=== PATIENT | female | born 1975 | race Caucasian/White ===

== ENCOUNTER 2017-01-03 11:15 | Inpatient (IN) | payer OTHER ==
[2017-01-03 14:37] VITALS: BMI 27.1
--- NOTE | 2017-01-03 16:34 | HP ---
Admission [facility] Chief Complaint: I WANT TO GO TO REHAB RECEIVED NURSE REPORTS THAT PPD VERIFICATION PENDING THAT THE PATIENT HAD PPD DONE AT [facility] Allergies/Adverse Reactions: Allergies Allergy/AdvReac Type Severity Reaction Status Date / Time iodine Allergy Severe Swelling Verified 01/03/17 15:35 shellfish derived Allergy Severe Swelling Verified 01/03/17 15:35 penicillin G Allergy Swelling Verified 01/03/17 15:35 Peroxide Allergy Severe Rash Uncoded 01/03/17 15:35 History of Present Illness: 41 YEARS OLD FEMALE WITH LONG HISTORY OF COCAINE NICOTINE DEPENDENCE HAS ASTHMA AND DEPRESSION IS ADMITTED TO REHAB Exam Limitations: No Limitations - Ebola screening Have you traveled outside of the country in the last 21 days: No Have you had contact with anyone from an Ebola affected area: No Have you been sick,other than usual withdrawal symptoms: No Do you have a fever: No - Review of Systems Constitutional: Weight Stable EENT: reports: No Symptoms Reported Respiratory: reports: No Symptoms reported Cardiac: reports: No Symptoms Reported GI: reports: No Symptoms Reported : reports: No Symptoms Reported Musculoskeletal: reports: No Symptoms Reported Integumentary: reports: No Symptoms Reported Neuro: reports: No Symptoms reported Endocrine: reports: No Symptoms Reported Hematology: reports: No Symptoms Reported Psychiatric: reports: Judgement Intact, Mood/Affect Appropiate, Orientated x3 Other Systems: Reviewed and Negative Patient History - Patient Medical History Hx Anemia: No Hx Asthma: Yes Hx Chronic Obstructive Pulmonary Disease (COPD): No Hx Cancer: No Hx Cardiac Disorders: No Hx Congestive Heart Failure: No Hx Hypertension: Yes (NO TREATMENT) Hx Hypercholesterolemia: No Hx Pacemaker: No HX Cerebrovascular Accident: No Hx Seizures: No Hx Dementia: No Hx Diabetes: No Hx Gastrointestinal Disorders: Yes (acid reflux) Hx Liver Disease: No Hx Genitourinary Disorders: No Hx Sexually Transmitted Disorders: No Hx Renal Disease (ESRD): No Hx Hepatitis C: No Hx Depression: Yes Hx Suicide Attempt: No Hx Bipolar Disorder: No Hx Schizophrenia: No - Patient Surgical History Past Surgical History: No Hx Neurologic Surgery: No Hx Cataract Extraction: No Hx Cardiac Surgery: No Hx Lung Surgery: No Hx Breast Surgery: No Hx Breast Biopsy: No Hx Abdominal Surgery: No Hx Appendectomy: No Hx Cholecystectomy: No Hx Genitourinary Surgery: No Hx Orthopedic Surgery: No - PPD History Previous Implant?: Yes Documented Results: Negative w/o proof Implanted On Prior [facility] Admission?: No PPD to be Administered?: Yes - Reproductive History Patient is a Female of Child Bearing Age (11 -55 yrs old): Yes Last Menstrual Period: 01/01/17 Patient : No - Smoking Cessation Smoking history: Current every day smoker Have you smoked in the past 12 months: Yes Aproximately how many cigarettes per day: 7 Cigars Per Day: 0 Hx Chewing Tobacco Use: No Initiated information on smoking cessation: Yes 'Breaking Loose' booklet given: 01/03/17 - Substance & Tx. History Hx Alcohol Use: No Hx Substance Use: Yes Substance Use Type: Cocaine Hx Substance Use Treatment: Yes (1998) - Substances Abused Cocaine Route: Smoking Frequency: Daily Amount used: $40 Age of first use: 23 Date of Last Use: 01/02/17 Family Disease History - Family Disease History Family Disease History: Diabetes: Grandparent, Other: Father (NO CONTACT), Mother (DO NOT KNOW) Admission Physical Exam S - Vital Signs Vital Signs: Vital Signs - 24 hr 01/03/17 14:35 Temperature 96 F L Pulse Rate 77 Respiratory 20 Rate Blood Pressure 111/63 - Physical General Appearance: Yes: Nourished, Appropriately Dressed HEENTM: Yes: Hearing grossly Normal, Normal ENT Inspection, Normocephalic, Normal Voice Respiratory: Yes: Chest Non-Tender, Lungs Clear, Normal Breath Sounds, No Respiratory Distress, No Accessory Muscle Use Neck: Yes: Supple, Trachea in good position Breast: Yes: Breasts Symetrical Cardiology: Yes: Regular Rhythm, Regular Rate, S1, S2 Abdominal: Yes: Normal Bowel Sounds, Non Tender, Soft Genitourinary: Yes: Within Normal Limits Back: Yes: Normal Inspection Musculoskeletal: Yes: full range of Motion, Gait Steady Extremities: Yes: Normal Range of Motion, Non-Tender, Other (VARICOSE VEINS LEFT LEG>RIGHT LEG) Neurological: Yes: Fully Oriented, Alert, Motor Strength 5/5, Normal Mood/Affect , Normal Response Integumentary: Yes: Warm Lymphatic: Yes: Within Normal Limits - Diagnostic (1) Cocaine dependence, uncomplicated Current Visit: Yes Status: Acute (2) Nicotine dependence Current Visit: Yes Status: Acute Qualifiers: Nicotine product type: cigarettes Substance use status: in withdrawal Qualified Code(s): F17.213 - Nicotine dependence, cigarettes, with withdrawal (3) Asthma Current Visit: Yes Status: Chronic Qualifiers: Asthma severity: mild Asthma persistence: intermittent Asthma complication type: with status asthmaticus Qualified Code(s): J45.22 - Mild intermittent asthma with status asthmaticus (4) GERD (gastroesophageal reflux disease) Current Visit: Yes Status: Chronic Qualifiers: Esophagitis presence: without esophagitis Qualified Code(s): K21.9 - Gastro -esophageal reflux disease without esophagitis (5) Varicose vein of leg Current Visit: Yes Status: Chronic Comment: RECOMMEND STOCKING (6) Methadone maintenance therapy patient Current Visit: Yes Status: Chronic Comment: 100 MG VERIFICATION PENDING Cleared for Admission S - Detox or Rehab [facility] Level of Care: Observation Bed Detox Regimen/Protocol: Not Applicable Claeared for Rehab Admission: Yes [facility] Breath Alcohol Content Breath Alcohol Content: 0 Urine Pregancy Test - Result Urine Test Results: Negative- NO Line Present Urine Drug Screen - Results Drug Screen Negative: No Urine Drug Screen Results: SONIA-Cocaine, MTD-Methadone Inpatient Rehab Admission - Initial Determination Are CD services needed?: Yes Free of communicable disease: Yes Not in need of hospitalization: Yes - Rehab Admission Criteria Previous failed treatment: Yes Poor recovery environment: Yes Comorbidities: Yes Lacks judgement: No Patient is meeting Inpatient Rehab admission criteria:: Yes
[2017-01-03] MEDS ORDERED: MAGNESIUM CITRATE 300 ML BOTTLE PO PRN (16:39)
[2017-01-03] MEDS ORDERED: MAGNESIUM HYDROX 2400MG/30ML ORAL SUSPENSION 30 ML CUP PO PRN (16:39)
[2017-01-03] MEDS ORDERED: NICOTINE POLACRILEX 2 MG GUM BC PRN (16:39)
[2017-01-03] MEDS ORDERED: LOPERAMIDE HCL 2 MG CAPSULE PO PRN (16:39)
[2017-01-03] MEDS ORDERED: MAG HYDROX/AL HYDROX/SIMETH 30 ML UNIT-DOSE CUP PO PRN (16:39)
[2017-01-03] MEDS ORDERED: guaiFENesin/D-METHORPHAN HB 10 ML UNIT-DOSE CUPS PO PRN (16:39)
[2017-01-03] MEDS ORDERED: ACETAMINOPHEN 325 MG TABLET (FP) PO PRN (16:39)
[2017-01-03] MEDS ORDERED: P-EPHED 60MG/TRIPROLIDI 2.5MG TABLET PO PRN (16:39)
[2017-01-03] MEDS ORDERED: MENTHOL/PHENOL 1 EACH UD MM PRN (16:39)
[2017-01-03] MEDS ORDERED: ALBUTEROL SO4 18 GM HFA INHALER IH PRN (16:40)
[2017-01-03] MEDS: RANITIDINE HCL 150 MG TABLET (FP) PO SCH ×2 (18:09→22:13)
[2017-01-03] MEDS: THIAMINE HCL 100 MG TABLET (FP) PO SCH (22:13)
[2017-01-03 22:58] LABS: URINE APPEARANCE CLOUDY; URINE BILIRUBIN NEGATIVE (NEGATIVE); URINE BLOOD NEGATIVE (NEGATIVE); URINE COLOR YELLOW; URINE GLUCOSE (UA) NEGATIVE (NEGATIVE); URINE KETONE NEGATIVE (NEGATIVE); URINE NITRITE NEGATIVE (NEGATIVE); URINE PROTEIN NEGATIVE (NEGATIVE); URINE UROBILINOGEN NEGATIVE mg/dL (0.2-1.0)
[2017-01-04] MEDS ORDERED: METHADONE HCL 10 MG TABLET PO SCH (06:00)
[2017-01-04] MEDS ORDERED: METHADONE HCL 40 MG DISPERSABLE TABLET ONE (06:59)
[2017-01-04] MEDS ORDERED: METHADONE HCL 10 MG TABLET ONE (06:59)
[2017-01-04] MEDS: METHADONE 80 MG, METHADONE 20 MG PO SCH (07:00)
[2017-01-04 07:22] VITALS: BP 108/72
[2017-01-04 09:57] LABS: MCH 32.1 pg (25.7-33.7); MEAN CELL VOLUME 97.1 fl (80-96); MEAN PLT VOLUME 7.7 fl (7.5-11.1); PLATELET COUNT 376 K/MM3 (134-434); RDW 15.1 % (11.6-15.6); WHITE BLOOD COUNT 8.3 K/mm3 (4.0-10.0)
[2017-01-04 10:09] LABS: ANION GAP 5 (8-16); BILIRUBIN,TOTAL 0.2 mg/dL (0.2-1.0); CALCIUM 8.5 mg/dL (8.5-10.1); CO2 30 mmol/L (21-32); GLUCOSE,RANDOM 84 mg/dL (74-106); SGOT/AST 11 U/L (15-37); SGPT/ALT 19 U/L (12-78); TOT PROT 6.7 g/dl (6.4-8.2)
[2017-01-04 10:10] LABS: ALBUMIN 3.3 g/dl (3.4-5.0); ALK PHOS 105 U/L (45-117); CREATININE 0.8 mg/dL (0.55-1.02)
[2017-01-04] MEDS: NICOTINE 14 MG/24 HOURS TOPICAL PATCH TD SCH (10:17)
[2017-01-04] MEDS: RANITIDINE HCL 150 MG TABLET (FP) PO SCH ×2 (10:17→21:30)
[2017-01-04] MEDS: PRENATAL VITAMINS W/ FOLIC ACID TABLET (FP) PO SCH (10:17)
--- NOTE | 2017-01-04 13:08 | EKG ---
Test Reason : Blood Pressure : / mmHG Vent. Rate : 075 BPM Atrial Rate : 075 BPM P-R Int : 178 ms QRS Dur : 102 ms QT Int : 420 ms P-R-T Axes : 062 076 075 degrees QTc Int : 469 ms NORMAL SINUS RHYTHM NORMAL ECG NO PREVIOUS ECGS AVAILABLE Confirmed by EDILSON DUNN MD ([id number]) on 01/04/2017 1:08:35 PM Referred By: Confirmed By:EDILSON DUNN MD
[2017-01-04 13:58] LABS: URINE LEUK ESTERASE Negative (NEGATIVE)
[2017-01-04] MEDS: THIAMINE HCL 100 MG TABLET (FP) PO SCH (21:29)
[2017-01-05] MEDS ORDERED: METHADONE HCL 10 MG TABLET ONE (05:49)
[2017-01-05] MEDS ORDERED: METHADONE HCL 40 MG DISPERSABLE TABLET ONE (05:49)
[2017-01-05] MEDS: METHADONE 80 MG, METHADONE 20 MG PO SCH (06:46)
[2017-01-05 07:17] VITALS: PULSE 71; TEMP 97.2
[2017-01-05] MEDS: RANITIDINE HCL 150 MG TABLET (FP) PO SCH (09:24)
[2017-01-05] MEDS: PRENATAL VITAMINS W/ FOLIC ACID TABLET (FP) PO SCH (09:24)
[2017-01-05] MEDS: NICOTINE 14 MG/24 HOURS TOPICAL PATCH TD SCH (09:32)
== END 2017-01-05 09:45 | disposition left against medical advice (07) | DRG 770 ==
LOC: YASAS 11:15 → Y3E 16:41
PROVIDERS: ADMIT Psychiatry & Neurology Psychiatry; ATTEND Psychiatry & Neurology Psychiatry
PROC: HZ42ZZZ Group Counseling for Substance Abuse Treatment, Cognitive-Behavioral (ICD-10-PCS; principal; 2017-01-03)
DX: F11.20 Opioid dependence, uncomplicated (principal); F14.20 Cocaine dependence, uncomplicated; F17.210 Nicotine dependence, cigarettes, uncomplicated; J45.909 Unspecified asthma, uncomplicated; K21.9 Gastro-esophageal reflux disease without esophagitis; I83.90 Asymptomatic varicose veins of unspecified lower extremity
CPT/HCPCS: 36415; 80053; 81003; 85027; 86593; 93005; 93010

== ENCOUNTER 2018-05-16 17:30 | Inpatient (IN) | payer SELFPAY ==
[2018-05-16 18:37] VITALS: BMI 36.9
--- NOTE | 2018-05-16 19:09 | HP ---
CIWA Score Nausea/Vomitin Muscle Tremors: 2 Anxiety: 2 Agitation: 0-Normal Activity Paroxysmal Sweats: 2 Orientation: 0-Oriented Tacttile Disturbances: 0-None Auditory Disturbances: 0-None Visual Disturbances: 2-Mild Sensitivity Headache: 3-Moderate (6/10) CIWA-Ar Total Score: 13 - Admission Criteria [facility] Guidelines: Admission for Medically Managed Detox: Requires at least one of the followin. CIWA greater than 12 2. Seizures within the past 24 hours 3. Delirium tremens within the past 24 hours 4. Hallucinations within the past 24 hours 5. Acute intervention needed for co occurring medical disorder 6. Acute intervention needed for co occurring psychiatric disorder 7. Severe withdrawal that cannot be handled at a lower level of care (continued vomiting, continued diarrhea, abnormal vital signs) requiring intravenous medication and/or fluids 8. Patient presents the following: CIWA greater than 12 Admission Criteria Met: Admission criteria met Admission ROS [facility] Chief Complaint: alcohol detox Allergies/Adverse Reactions: Allergies Allergy/AdvReac Type Severity Reaction Status Date / Time iodine Allergy Severe Swelling Verified 05/16/18 18:26 shellfish derived Allergy Severe Swelling Verified 05/16/18 18:26 penicillin G Allergy Swelling Verified 05/16/18 18:26 Peroxide Allergy Severe Rash Uncoded 05/16/18 18:26 History of Present Illness: 42 yo female with hx of alcohol, percocet and crack / cocaine dependence is here seeking alcohol detox. [facility] on 70 mg, last dose today, dose pending verification PMHX: asthma, RA, HTN, GERD Psych; depression, bipolar and anxiety, non-adherent with treatment Denies hx of seizures Reports remote hx of alcohol blackouts. Exam Limitations: No Limitations - Ebola screening Have you traveled outside of the country in the last 21 days: No (N) Have you had contact with anyone from an Ebola affected area: No Do you have a fever: No - Review of Systems Constitutional: Chills, Diaphoresis, Other (weight gain "a lot") EENT: reports: Nose Congestion (runny nose) Respiratory: reports: No Symptoms reported Cardiac: reports: No Symptoms Reported GI: reports: Nausea, Poor Fluid Intake, Indigestion : reports: No Symptoms Reported Musculoskeletal: reports: Joint Pain Integumentary: reports: No Symptoms Reported Neuro: reports: Headache, Tingling (fingertips) Endocrine: reports: See HPI, Increased Thirst Hematology: reports: No Symptoms Reported Psychiatric: reports: Orientated x3, Anxious Other Systems: Reviewed and Negative Patient History - Patient Medical History Hx Anemia: No Hx Asthma: Yes Hx Chronic Obstructive Pulmonary Disease (COPD): No Hx Cancer: No Hx Cardiac Disorders: No Hx Congestive Heart Failure: No Hx Hypertension: Yes (NO TREATMENT) Hx Hypercholesterolemia: No Hx Pacemaker: No HX Cerebrovascular Accident: No Hx Seizures: No Hx Dementia: No Hx Diabetes: No Hx Gastrointestinal Disorders: Yes (acid reflux) Hx Liver Disease: No Hx Genitourinary Disorders: No Hx Sexually Transmitted Disorders: No Hx Renal Disease (ESRD): No Hx Hepatitis C: No Hx Depression: Yes Hx Suicide Attempt: No Hx Bipolar Disorder: Yes Hx Schizophrenia: No - Patient Surgical History Past Surgical History: No Hx Neurologic Surgery: No Hx Cataract Extraction: No Hx Cardiac Surgery: No Hx Lung Surgery: No Hx Breast Surgery: No Hx Breast Biopsy: No Hx Abdominal Surgery: No Hx Appendectomy: No Hx Cholecystectomy: No Hx Genitourinary Surgery: No Hx Section: No Hx Orthopedic Surgery: No Anesthesia Reaction: No - PPD History Previous Implant?: No Documented Results: Negative w/o proof PPD to be Administered?: Yes - Reproductive History Patient is a Female of Child Bearing Age (11 -55 yrs old): Yes Last Menstrual Period: 05/12/18 - Smoking Cessation Smoking history: Current every day smoker Have you smoked in the past 12 months: Yes Aproximately how many cigarettes per day: 4 Cigars Per Day: 0 Hx Chewing Tobacco Use: No Initiated information on smoking cessation: Yes 'Breaking Loose' booklet given: 05/16/18 - Substance & Tx. History Hx Alcohol Use: Yes Hx Substance Use: Yes Substance Use Type: Alcohol, Cocaine, Heroin Hx Substance Use Treatment: Yes (Patient does not recall ) - Substances abused Other Other (specify): Percocet Substance route: Oral Frequency: Daily Amount used: 5 pills Age of first use: 38 Date of last use: 05/16/18 Cocaine Substance route: Smoking Frequency: Daily Amount used: 1 and a half gram Age of first use: 23 Date of last use: 05/15/18 Crack Substance route: Smoking Frequency: Daily Amount used: 1 and a half gram Age of first use: 23 Date of last use: 05/15/18 Alcohol Substance route: Oral Frequency: Daily Amount used: 3 - 4 x 16 oz Age of first use: 6 Date of last use: 05/16/18 Family Disease History - Family Disease History Family Disease History: Diabetes: Grandparent, Other: Father (NO CONTACT), Mother (DO NOT KNOW) Admission Physical Exam [facility] - Vital Signs Vital Signs: Vital Signs - 24 hr 05/16/18 18:30 Temperature 98.0 F Pulse Rate 75 Respiratory 20 Rate Blood Pressure 121/75 - Physical General Appearance: Yes: Disheveled (unkempt), Mild Distress, Obese, Anxious HEENTM: Yes: Hearing grossly Normal, Normal ENT Inspection, Normocephalic, Normal Voice, JENNIFER, Pharynx Normal, Tm's normal, Nasal Congestion, Rhinorrhea Respiratory: Yes: Chest Non-Tender, Lungs Clear, Normal Breath Sounds, No Respiratory Distress, No Accessory Muscle Use Neck: Yes: Within Normal Limits Breast: Yes: Breast Exam Deferred Cardiology: Yes: Regular Rhythm, Regular Rate Abdominal: Yes: Normal Bowel Sounds, Non Tender, Soft, Protuberent Genitourinary: Yes: Within Normal Limits Back: Yes: Normal Inspection Musculoskeletal: Yes: full range of Motion, Gait Steady, Pelvis Stable, Back pain Extremities: Yes: Normal Capillary Refill, Normal Inspection, Normal Range of Motion, Non-Tender Neurological: Yes: deck scaler II-XII NML intact, Fully Oriented, Alert, Motor Strength 5/5, Depressed Affect Integumentary: Yes: Normal Color, Warm, Diaphoresis Lymphatic: Yes: Within Normal Limits - Diagnostic (1) Hypertension Current Visit: Yes Status: Chronic Qualifiers: Hypertension type: essential hypertension Qualified Code(s): I10 - Essential (primary) hypertension Comment: no meds (2) Alcohol dependence with uncomplicated withdrawal Current Visit: Yes Status: Acute (3) Cocaine dependence, uncomplicated Current Visit: Yes Status: Acute (4) Nicotine dependence Current Visit: Yes Status: Acute Qualifiers: Nicotine product type: cigarettes Substance use status: in withdrawal Qualified Code(s): F17.213 - Nicotine dependence, cigarettes, with withdrawal (5) Asthma Current Visit: Yes Status: Chronic Qualifiers: Asthma severity: mild Asthma persistence: intermittent Asthma complication type: with status asthmaticus Qualified Code(s): J45.22 - Mild intermittent asthma with status asthmaticus (6) GERD (gastroesophageal reflux disease) Current Visit: Yes Status: Chronic Qualifiers: Esophagitis presence: without esophagitis Qualified Code(s): K21.9 - Gastro -esophageal reflux disease without esophagitis (7) Methadone maintenance therapy patient Current Visit: Yes Status: Chronic Comment: 70 MG VERIFICATION PENDING (8) Varicose vein of leg Current Visit: Yes Status: Chronic Qualifiers: Laterality: bilateral Cleared for Admission [facility] - Detox or Rehab S Level of Care: Medically Managed Detox Regimen/Protocol: Librium Breathalyzer - Breathalyzer Breathalyzer: 0 Urine Drug Screen - Test Device Lot number: [id number] Expiration date: 05/05/19 - Control Is test valid?: Yes - Results Drug screen NEGATIVE: No Urine drug screen results: SONIA-Cocaine, OXY-Oxycodone, MTD-Methadone Inpatient Rehab Admission - Rehab Decision to Admit Inpatient rehab admission?: No
[2018-05-16] MEDS ORDERED: MAG HYDROX/AL HYDROX/SIMETH 30 ML UNIT-DOSE CUP PO PRN (19:13)
[2018-05-16] MEDS ORDERED: IBUPROFEN 400 MG TABLET (FP) PO PRN (19:13)
[2018-05-16] MEDS ORDERED: chlordiazePOXIDE HCL 10 MG CAPSULE PO PRN (19:13)
[2018-05-16] MEDS ORDERED: MELATONIN 5 MG TABLETS PO PRN (19:13)
[2018-05-16] MEDS ORDERED: MENTHOL/PHENOL 1 EACH UD MM PRN (19:13)
[2018-05-16] MEDS ORDERED: MAGNESIUM CITRATE 300 ML BOTTLE PO PRN (19:13)
[2018-05-16] MEDS ORDERED: BISMUTH SUBSALICYLATE 524 MG/30 ML UD PO PRN (19:13)
[2018-05-16] MEDS ORDERED: hydrOXYzine PAMOATE 25 MG CAPSULE (FP) PO PRN (19:13)
[2018-05-16] MEDS ORDERED: MAGNESIUM HYDROX 2400MG/30ML ORAL SUSPENSION 30 ML CUP PO PRN (19:13)
[2018-05-16] MEDS ORDERED: METHOCARBAMOL 500 MG TABLET PO PRN (19:13)
[2018-05-16] MEDS ORDERED: NICOTINE POLACRILEX 2 MG GUM BUC PRN (19:13)
[2018-05-16] MEDS ORDERED: ACETAMINOPHEN 325 MG TABLET (FP) PO PRN ×2 (19:13)
[2018-05-16] MEDS: chlordiazePOXIDE HCL 25 MG CAPSULE PO SCH (21:29)
[2018-05-16] MEDS ORDERED: THIAMINE HCL 100 MG TABLET (FP) PO SCH (22:00)
[2018-05-16 23:29] LABS: URINE APPEARANCE Clear; URINE BILIRUBIN Negative (NEGATIVE); URINE COLOR Yellow; URINE GLUCOSE (UA) Negative (NEGATIVE); URINE KETONE Negative (NEGATIVE); URINE LEUK ESTERASE Negative (NEGATIVE); URINE NITRITE Negative (NEGATIVE); URINE PROTEIN Negative (NEGATIVE); URINE UROBILINOGEN 0.2 mg/dL (0.2-1.0)
[2018-05-17] MEDS: chlordiazePOXIDE HCL 25 MG CAPSULE PO SCH (05:28)
[2018-05-17 06:14] VITALS: BP 113/72; PULSE 68; TEMP 96.8
[2018-05-17 09:52] LABS: HEMATOCRIT 38.6 % (32.4-45.2); MCH 33.5 pg (25.7-33.7); MCHC 33.8 g/dl (32.0-36.0); MEAN CELL VOLUME 99.2 fl (80-96); MEAN PLT VOLUME 7.8 fl (7.5-11.1); PLATELET COUNT 301 K/MM3 (134-434); RBC 3.89 M/mm3 (3.60-5.2); RDW 14.6 % (11.6-15.6); WHITE BLOOD COUNT 6.4 K/mm3 (4.0-10.0)
[2018-05-17] MEDS ORDERED: NICOTINE 14 MG/24 HOURS TOPICAL PATCH TD SCH (10:00)
[2018-05-17] MEDS ORDERED: PRENATAL VITAMINS W/ FOLIC ACID TABLET (FP) PO SCH (10:00)
[2018-05-17 10:06] LABS: ALBUMIN 3.4 g/dl (3.4-5.0); ALK PHOS 73 U/L (45-117); ANION GAP 4 MMOL/L (8-16); BILIRUBIN,TOTAL 0.6 mg/dL (0.2-1); BLOOD UREA NITROGEN 15 mg/dL (7-18); CALCIUM 8.3 mg/dL (8.5-10.1); CHLORIDE 104 mmol/L (98-107); CO2 31 mmol/L (21-32); CREATININE 0.7 mg/dL (0.55-1.3); GLUCOSE,RANDOM 102 mg/dL (74-106); POTASSIUM 4.5 mmol/L (3.5-5.1); SGOT/AST 15 U/L (15-37); SGPT/ALT 18 U/L (13-61); SODIUM 138 mmol/L (136-145); TOT PROT 6.4 g/dl (6.4-8.2)
--- NOTE | 2018-05-17 10:26 | EKG ---
Test Reason : Blood Pressure : / mmHG Vent. Rate : 073 BPM Atrial Rate : 073 BPM P-R Int : 174 ms QRS Dur : 092 ms QT Int : 410 ms P-R-T Axes : 047 075 064 degrees QTc Int : 451 ms NORMAL SINUS RHYTHM NORMAL ECG WHEN COMPARED WITH ECG OF 03-JAN-2017 21:20, NO SIGNIFICANT CHANGE WAS FOUND Confirmed by IBIS LEROY MD ([id number]) on 05/17/2018 10:26:48 AM Referred By: Confirmed By:IBIS LEROY MD
--- NOTE | 2018-05-17 15:58 | PN ---
S CIWA - CIWA Score Nausea/Vomitin-No Nausea/No Vomiting Muscle Tremors: 3 Anxiety: 4-Mod. Anxious/Guarded Agitation: 3 Paroxysmal Sweats: No Perspiration Orientation: 0-Oriented Tacttile Disturbances: 2-Mild Itch/Numbness/Burn Auditory Disturbances: 0-None Visual Disturbances: 2-Mild Sensitivity Headache: 0-None Present CIWA-Ar Total Score: 14 [facility] Progress Note (SOAP) Subjective: Anxious, Restless, Tremors, Interrupted Sleep. Objective: PATIENT A & O X 3, OBSERVED AMBULATING ON UNIT. IN NO ACUTE DISTRESS. 05/17/18 15:59 Vital Signs Temperature 96.8 F L 05/17/18 06:14 Pulse Rate 68 05/17/18 06:14 Respiratory Rate 18 05/17/18 06:14 Blood Pressure 113/72 05/17/18 06:14 O2 Sat by Pulse Oximetry (%) Laboratory Tests 05/16/18 05/16/18 05/17/18 22:03 22:59 07:00 WBC 6.4 RBC 3.89 Hgb 13.0 Hct 38.6 MCV 99.2 H MCH 33.5 MCHC 33.8 RDW 14.6 Plt Count 301 MPV 7.8 Sodium Potassium Chloride Carbon Dioxide Anion Gap BUN Creatinine Creat Clearance w eGFR Random Glucose Calcium Total Bilirubin AST ALT Alkaline Phosphatase Total Protein Albumin Urine Color Yellow Urine Appearance Clear Urine pH 6.0 Ur Specific [place] 1.025 Urine Protein Negative Urine Glucose (UA) Negative Urine Ketones Negative Urine Blood Negative Urine Nitrite Negative Urine Bilirubin Negative Urine Urobilinogen 0.2 Ur Leukocyte Esterase Negative POC Urine HCG, Qual Negative RPR Titer 05/17/18 05/17/18 07:00 07:00 WBC RBC Hgb Hct MCV MCH MCHC RDW Plt Count MPV Sodium 138 Potassium 4.5 Chloride 104 Carbon Dioxide 31 Anion Gap 4 L BUN 15 Creatinine 0.7 Creat Clearance w eGFR 92.68 Random Glucose 102 Calcium 8.3 L Total Bilirubin 0.6 AST 15 ALT 18 Alkaline Phosphatase 73 Total Protein 6.4 Albumin 3.4 Urine Color Urine Appearance Urine pH Ur Specific [place] Urine Protein Urine Glucose (UA) Urine Ketones Urine Blood Urine Nitrite Urine Bilirubin Urine Urobilinogen Ur Leukocyte Esterase POC Urine HCG, Qual RPR Titer Nonreactive LABS NOTED. Assessment: 05/17/18 16:00 WITHDRAWAL SYMPTOMS. Plan: CONTINUE DETOX.
--- NOTE | 2018-05-17 16:10 | DS ---
[facility] Detox Discharge Summary Admission Date: 05/16/18 Discharge Date: 05/17/18 - History Present History: Alcohol Dependence, Cocaine Dependence, Opioid Dependence, MMTP Additional Comments: DESPITE EFFORTS BY FOOD COUNSELOR AND BY NURSING STAFF TO ADDRESS PATIENT'S MEDICAL NEEDS / CONCERNS, PATIENT DOES NOT WISH TO REMAIN TO COMPLETE DETOX REGIMEN. RISKS OF LEAVING DETOX UNIT AGAINST MEDICAL ADVICE AND PRIOR TO COMPLETION OF DETOX REGIMEN EXPLAINED TO PATIENT. PATIENT ADVISED TO GO IMMEDIATELY TO NEAREST ER SHOULD ANY INTOLERABLE WITHDRAWAL / DETOX SYMPTOMS DEVELOP AT ANY TIME. PATIENT VERBALIZED UNDERSTANDING OF ALL INFORMATION / RECOMMENDATIONS PRESENTED TO HIM PRIOR TO DEPARTURE FROM DETOX UNIT. PATIENT LEFT DETOX UNIT IN STABLE MEDICAL CONDITION. Pertinent Past History: HTN, Nicotine Dependence, G.E.R.D., History of Varicose Vein of Leg, M.M.T.P., Asthma, Depression, Bipolar Disorder. - Physical Exam Results Vital Signs: Vital Signs Temperature 96.8 F L 05/17/18 06:14 Pulse Rate 68 05/17/18 06:14 Respiratory Rate 18 05/17/18 06:14 Blood Pressure 113/72 05/17/18 06:14 O2 Sat by Pulse Oximetry (%) Pertinent Admission Physical Exam Findings: WITHDRAWAL SYMPTOMS. Laboratory Tests 05/16/18 05/16/18 05/17/18 22:03 22:59 07:00 WBC 6.4 RBC 3.89 Hgb 13.0 Hct 38.6 MCV 99.2 H MCH 33.5 MCHC 33.8 RDW 14.6 Plt Count 301 MPV 7.8 Sodium Potassium Chloride Carbon Dioxide Anion Gap BUN Creatinine Creat Clearance w eGFR Random Glucose Calcium Total Bilirubin AST ALT Alkaline Phosphatase Total Protein Albumin Urine Color Yellow Urine Appearance Clear Urine pH 6.0 Ur Specific [place] 1.025 Urine Protein Negative Urine Glucose (UA) Negative Urine Ketones Negative Urine Blood Negative Urine Nitrite Negative Urine Bilirubin Negative Urine Urobilinogen 0.2 Ur Leukocyte Esterase Negative POC Urine HCG, Qual Negative RPR Titer 05/17/18 05/17/18 07:00 07:00 WBC RBC Hgb Hct MCV MCH MCHC RDW Plt Count MPV Sodium 138 Potassium 4.5 Chloride 104 Carbon Dioxide 31 Anion Gap 4 L BUN 15 Creatinine 0.7 Creat Clearance w eGFR 92.68 Random Glucose 102 Calcium 8.3 L Total Bilirubin 0.6 AST 15 ALT 18 Alkaline Phosphatase 73 Total Protein 6.4 Albumin 3.4 Urine Color Urine Appearance Urine pH Ur Specific [place] Urine Protein Urine Glucose (UA) Urine Ketones Urine Blood Urine Nitrite Urine Bilirubin Urine Urobilinogen Ur Leukocyte Esterase POC Urine HCG, Qual RPR Titer Nonreactive LABS NOTED. - Treatment Hospital Course: Detox Protocol Followed, Detoxed Safely - Medication Discharge Medications: Ambulatory Orders Albuterol Sulfate Inhaler - [Ventolin Hfa Inhaler -] 2 inh PO Q4H PRN 01/03/17 - Diagnosis (1) Alcohol dependence with uncomplicated withdrawal Status: Acute (2) Cocaine dependence, uncomplicated Status: Acute (3) Nicotine dependence Status: Acute Qualifiers: Nicotine product type: cigarettes Substance use status: in withdrawal Qualified Code(s): F17.213 - Nicotine dependence, cigarettes, with withdrawal (4) Asthma Status: Chronic Qualifiers: Asthma severity: mild Asthma persistence: intermittent Asthma complication type: with status asthmaticus Qualified Code(s): J45.22 - Mild intermittent asthma with status asthmaticus (5) GERD (gastroesophageal reflux disease) Status: Chronic Qualifiers: Esophagitis presence: without esophagitis Qualified Code(s): K21.9 - Gastro -esophageal reflux disease without esophagitis (6) Hypertension Status: Chronic Qualifiers: Hypertension type: essential hypertension Qualified Code(s): I10 - Essential (primary) hypertension (7) Methadone maintenance therapy patient Status: Chronic (8) Varicose vein of leg Status: Chronic Qualifiers: Varicose vein complication: unspecified Laterality: bilateral Qualified Code(s): I83.93 - Asymptomatic varicose veins of bilateral lower extremities - AMA Did Patient Leave Against Medical Advice: Yes (PATIENT DID NOT WISH TO REMAIN TO COMPLETE DETOX REGIMEN.)
[2018-05-17] MEDS ORDERED: chlordiazePOXIDE 5 MG CAPSULE PO SCH (21:00)
[2018-05-18] MEDS ORDERED: chlordiazePOXIDE HCL 10 MG CAPSULE PO SCH (21:00)
[2018-05-18] MEDS ORDERED: chlordiazePOXIDE HCL 10 MG CAPSULE PO PRN (21:00)
== END 2018-05-17 08:47 | disposition left against medical advice (07) | DRG 770 ==
LOC: YASAS 17:30 → Y3N 20:20
PROVIDERS: ADMIT Surgery; ATTEND Surgery
PROC: HZ2ZZZZ Detoxification Services for Substance Abuse Treatment (ICD-10-PCS; principal; 2018-05-16)
DX: F10.230 Alcohol dependence with withdrawal, uncomplicated (principal); F11.20 Opioid dependence, uncomplicated; F14.20 Cocaine dependence, uncomplicated; F17.213 Nicotine dependence, cigarettes, with withdrawal; I10 Essential (primary) hypertension; J45.22 Mild intermittent asthma with status asthmaticus; K21.9 Gastro-esophageal reflux disease without esophagitis; I83.93 Asymptomatic varicose veins of bilateral lower extremities; M06.9 Rheumatoid arthritis, unspecified; E66.9 Obesity, unspecified; Z68.37 Body mass index [BMI] 37.0-37.9, adult; Z88.0 Allergy status to penicillin; Z91.013 Allergy to seafood; Z91.048 Other nonmedicinal substance allergy status
CPT/HCPCS: 36415; 80053; 81003; 81025; 85027; 86593; 93005; 93010

== ENCOUNTER 2018-06-10 13:06 | Inpatient (IN) | payer OTHER ==
[2018-06-10 14:11] VITALS: BMI 35.3
--- NOTE | 2018-06-10 15:17 | HP ---
CIWA Score Nausea/Vomitin-No Nausea/No Vomiting Muscle Tremors: None Anxiety: 0-No Anxiety, at Ease Agitation: 0-Normal Activity Paroxysmal Sweats: No Perspiration Orientation: 0-Oriented Tacttile Disturbances: 0-None Auditory Disturbances: 0-None Visual Disturbances: 0-None Headache: 2-Mild CIWA-Ar Total Score: 2 - Admission Criteria OASAS Guidelines: Admission for Medically Managed Detox: Requires at least one of the followin. CIWA greater than 12 2. Seizures within the past 24 hours 3. Delirium tremens within the past 24 hours 4. Hallucinations within the past 24 hours 5. Acute intervention needed for co occurring medical disorder 6. Acute intervention needed for co occurring psychiatric disorder 7. Severe withdrawal that cannot be handled at a lower level of care (continued vomiting, continued diarrhea, abnormal vital signs) requiring intravenous medication and/or fluids 8. Admission [facility] Chief Complaint: seeking rehab admission for cocaine use 42 yo with h/o asthma, diabetes, RA, varicose veins, PCP- [facility]. alcohol- no drink since yesterday, 2-3 of 24 oz/day of beer, no h/o seizures, no withdrawal Sx. cocaine- 1 gram/day DUR: no recent meds Utox: MTD, opiates, satnam MTD: 70mg/day [facility] Allergies/Adverse Reactions: Allergies Allergy/AdvReac Type Severity Reaction Status Date / Time iodine Allergy Severe Swelling Verified 06/10/18 14:03 shellfish derived Allergy Severe Swelling Verified 06/10/18 14:03 penicillin G Allergy Swelling Verified 06/10/18 14:03 Peroxide Allergy Severe Rash Uncoded 06/10/18 14:03 - Ebola screening Have you traveled outside of the country in the last 21 days: No Have you had contact with anyone from an Ebola affected area: No Patient History - Patient Medical History Hx Anemia: No Hx Asthma: Yes Hx Chronic Obstructive Pulmonary Disease (COPD): No Hx Cancer: No Hx Cardiac Disorders: No Hx Congestive Heart Failure: No Hx Hypertension: Yes (NO TREATMENT) Hx Hypercholesterolemia: No Hx Pacemaker: No HX Cerebrovascular Accident: No Hx Seizures: No Hx Dementia: No Hx Diabetes: No Hx Gastrointestinal Disorders: Yes (acid reflux) Hx Liver Disease: No Hx Genitourinary Disorders: No Hx Sexually Transmitted Disorders: No Hx Renal Disease (ESRD): No Hx Hepatitis C: No Hx Depression: Yes Hx Suicide Attempt: No Hx Bipolar Disorder: Yes Hx Schizophrenia: No Other Medical History: diabetes? - Patient Surgical History Past Surgical History: No Hx Neurologic Surgery: No Hx Cataract Extraction: No Hx Cardiac Surgery: No Hx Lung Surgery: No Hx Breast Surgery: No Hx Breast Biopsy: No Hx Abdominal Surgery: No Hx Appendectomy: No Hx Cholecystectomy: No Hx Genitourinary Surgery: No Hx Section: No Hx Orthopedic Surgery: No Anesthesia Reaction: No - PPD History Date: 05/18/18 - Reproductive History Last Menstrual Period: 05/12/18 - Smoking Cessation Smoking history: Current every day smoker Have you smoked in the past 12 months: Yes Aproximately how many cigarettes per day: 4 Cigars Per Day: 0 Hx Chewing Tobacco Use: No Initiated information on smoking cessation: Yes 'Breaking Loose' booklet given: 06/10/18 - Substance & Tx. History Hx Alcohol Use: Yes Hx Substance Use: Yes Substance Use Type: Cocaine, Prescribed Hx Substance Use Treatment: Yes - Substances abused Other Other (specify): Percocet Substance route: Oral Frequency: Daily Amount used: 5 pills Age of first use: 38 Date of last use: 05/16/18 Cocaine Substance route: Smoking Frequency: Daily Amount used: 1 and a half gram Age of first use: 23 Date of last use: 06/09/18 Crack Substance route: Smoking Frequency: Daily Amount used: 1 and a half gram Age of first use: 23 Date of last use: 06/09/18 Alcohol Substance route: Oral Frequency: Daily Amount used: 3 - 4 x 16 oz Age of first use: 6 Date of last use: 06/09/18 Family Disease History - Family Disease History Family Disease History: Diabetes: Grandparent, Other: Father (NO CONTACT), Mother (DO NOT KNOW), Brother (blind) Admission Physical Exam [facility] - Vital Signs Vital Signs: Vital Signs - 24 hr 06/10/18 06/10/18 14:05 15:01 Temperature 97.1 F L 97.1 F L Pulse Rate 72 72 Respiratory 20 20 Rate Blood Pressure 116/74 116/74 - Physical General Appearance: Yes: Within Normal Limits HEENTM: Yes: Within Normal Limits Respiratory: Yes: Within Normal Limits Neck: Yes: Within Normal Limits Cardiology: Yes: Within Normal Limits Abdominal: Yes: Within Normal Limits Back: Yes: Within Normal Limits, Normal Inspection Musculoskeletal: Yes: Within Normal Limits, Other Extremities: Yes: Within Normal Limits, Other (dilated superficial veins L>R) Neurological: Yes: Within Normal Limits, surg tech II-XII NML intact, Fully Oriented, Alert, Motor Strength 5/5 Integumentary: Yes: Within Normal Limits Lymphatic: Yes: Within Normal Limits - Diagnostic (1) Alcohol dependence with uncomplicated withdrawal Current Visit: No Status: Acute (2) Cocaine dependence, uncomplicated Current Visit: No Status: Acute (3) Nicotine dependence Current Visit: No Status: Acute Qualifiers: Nicotine product type: cigarettes Substance use status: in withdrawal Qualified Code(s): F17.213 - Nicotine dependence, cigarettes, with withdrawal (4) Asthma Current Visit: No Status: Chronic Qualifiers: Asthma severity: mild Asthma persistence: intermittent Asthma complication type: with status asthmaticus Qualified Code(s): J45.22 - Mild intermittent asthma with status asthmaticus (5) GERD (gastroesophageal reflux disease) Current Visit: No Status: Chronic Qualifiers: Esophagitis presence: without esophagitis Qualified Code(s): K21.9 - Gastro -esophageal reflux disease without esophagitis (6) Hypertension Current Visit: No Status: Chronic Qualifiers: Hypertension type: essential hypertension Qualified Code(s): I10 - Essential (primary) hypertension Comment: no meds (7) Methadone maintenance therapy patient Current Visit: No Status: Chronic Comment: 70 MG VERIFICATION PENDING (8) Varicose vein of leg Current Visit: No Status: Chronic Qualifiers: Varicose vein complication: unspecified Laterality: bilateral Qualified Code(s): I83.93 - Asymptomatic varicose veins of bilateral lower extremities Breathalyzer - Breathalyzer Breathalyzer: 0 Urine Drug Screen - Test Device Lot number: [id number] Expiration date: 01/05/20 - Control Is test valid?: Yes - Results Drug screen NEGATIVE: No Urine drug screen results: SATNAM-Cocaine, MOP-Opiates, MTD-Methadone Inpatient Rehab Admission - Rehab Decision to Admit Inpatient rehab admission?: Yes - Initial Determination Are CD services needed?: Yes Free of communicable disease: Yes Not in need of hospitalization: Yes - Rehab Admission Criteria Previous failed treatment: Yes Poor recovery environment: Yes Comorbidities: Yes Lacks judgement: Yes Patient is meeting Inpatient Rehab admission criteria:: Yes (pt was here for alcohol detox last month)
[2018-06-10] MEDS ORDERED: MENTHOL/PHENOL 1 EACH UD MM PRN (15:24)
[2018-06-10] MEDS ORDERED: MAGNESIUM CITRATE 300 ML BOTTLE PO PRN (15:24)
[2018-06-10] MEDS ORDERED: guaiFENesin 200 MG/10 ML 10 ML UNIT-DOSE CUPS PO PRN (15:24)
[2018-06-10] MEDS ORDERED: hydrOXYzine PAMOATE 25 MG CAPSULE (FP) PO PRN (15:24)
[2018-06-10] MEDS ORDERED: LOPERAMIDE HCL 2 MG CAPSULE PO PRN (15:24)
[2018-06-10] MEDS ORDERED: MAGNESIUM HYDROX 2400MG/30ML ORAL SUSPENSION 30 ML CUP PO PRN (15:24)
[2018-06-10] MEDS ORDERED: ACETAMINOPHEN 325 MG TABLET (FP) PO PRN (15:24)
[2018-06-10] MEDS ORDERED: IBUPROFEN 400 MG TABLET (FP) PO PRN (15:24)
[2018-06-10] MEDS ORDERED: P-EPHED 60MG/TRIPROLIDI 2.5MG TABLET PO PRN (15:24)
[2018-06-10] MEDS ORDERED: ALBUTEROL SO4 8 GM HFA INHALER IH PRN (15:26)
[2018-06-10] MEDS: MAG HYDROX/AL HYDROX/SIMETH 30 ML UNIT-DOSE CUP PO PRN (17:29)
[2018-06-10] MEDS: NICOTINE POLACRILEX 4 MG GUM BC PRN (18:56)
[2018-06-10 19:03] LABS: HEMATOCRIT 39.5 % (32.4-45.2); HEMOGLOBIN 13.1 GM/dL (10.7-15.3); MCH 33.2 pg (25.7-33.7); MCHC 33.2 g/dl (32.0-36.0); MEAN PLT VOLUME 8.1 fl (7.5-11.1); PLATELET COUNT 302 K/MM3 (134-434); RBC 3.95 M/mm3 (3.60-5.2); RDW 14.2 % (11.6-15.6); WHITE BLOOD COUNT 7.6 K/mm3 (4.0-10.0)
[2018-06-10 19:16] LABS: ALBUMIN 3.6 g/dl (3.4-5.0); ALK PHOS 95 U/L (45-117); ANION GAP 7 MMOL/L (8-16); BILIRUBIN,TOTAL < 0.1 mg/dL (0.2-1); BLOOD UREA NITROGEN 19 mg/dL (7-18); CALCIUM 8.5 mg/dL (8.5-10.1); CHLORIDE 106 mmol/L (98-107); CO2 29 mmol/L (21-32); CREATININE 0.8 mg/dL (0.55-1.3); GLUCOSE,RANDOM 133 mg/dL (74-106); POTASSIUM 4.1 mmol/L (3.5-5.1); SGOT/AST 14 U/L (15-37); SGPT/ALT 19 U/L (13-61); SODIUM 142 mmol/L (136-145); TOT PROT 6.7 g/dl (6.4-8.2)
[2018-06-10] MEDS: THIAMINE HCL 100 MG TABLET (FP) PO SCH (21:36)
[2018-06-10] MEDS: OXYMETAZOLINE 0.05% NASAL SOLUTION 15 ML BOTTLE NS PRN (21:49)
[2018-06-10] MEDS ORDERED: MELATONIN 5 MG TABLETS PO PRN (22:00)
[2018-06-11] MEDS: NICOTINE 21 MG/24 HOURS TOPICAL PATCH TD SCH (09:47)
[2018-06-11] MEDS: PRENATAL VITAMINS W/ FOLIC ACID TABLET (FP) PO SCH (09:47)
[2018-06-11] MEDS ORDERED: METHADONE HCL 10 MG TABLET PO SCH (10:00)
[2018-06-11] MEDS ORDERED: NICOTINE 14 MG/24 HOURS TOPICAL PATCH TD SCH (10:00)
[2018-06-11] MEDS ORDERED: METHADONE HCL 40 MG DISPERSABLE TABLET ONE (10:07)
[2018-06-11] MEDS ORDERED: METHADONE HCL 10 MG TABLET ONE (10:07)
[2018-06-11] MEDS: METHADONE 40 MG, METHADONE 30 MG PO SCH (10:46)
[2018-06-11] MEDS ORDERED: PT OWN MED DRAWER 7, Y5N ONE (16:26)
[2018-06-11] MEDS: OXYMETAZOLINE 0.05% NASAL SOLUTION 15 ML BOTTLE NS PRN (16:26)
[2018-06-11] MEDS: THIAMINE HCL 100 MG TABLET (FP) PO SCH (21:44)
[2018-06-12] MEDS: MAG HYDROX/AL HYDROX/SIMETH 30 ML UNIT-DOSE CUP PO PRN (00:44)
[2018-06-12] MEDS ORDERED: METHADONE HCL 10 MG TABLET ONE (03:23)
[2018-06-12] MEDS ORDERED: METHADONE HCL 40 MG DISPERSABLE TABLET ONE (03:23)
[2018-06-12] MEDS: METHADONE 40 MG, METHADONE 30 MG PO SCH (06:10)
[2018-06-12] MEDS: OXYMETAZOLINE 0.05% NASAL SOLUTION 15 ML BOTTLE NS PRN (06:13)
[2018-06-12] MEDS ORDERED: PT OWN MED DRAWER 7, Y5N ONE ×3 (06:13→21:47)
[2018-06-12] MEDS: PRENATAL VITAMINS W/ FOLIC ACID TABLET (FP) PO SCH (09:59)
[2018-06-12] MEDS: NICOTINE 21 MG/24 HOURS TOPICAL PATCH TD SCH (11:00)
[2018-06-12] MEDS: NICOTINE POLACRILEX 4 MG GUM BC PRN (18:37)
[2018-06-12] MEDS: THIAMINE HCL 100 MG TABLET (FP) PO SCH (21:40)
[2018-06-13] MEDS: OXYMETAZOLINE 0.05% NASAL SOLUTION 15 ML BOTTLE NS PRN (02:10)
[2018-06-13] MEDS: MAG HYDROX/AL HYDROX/SIMETH 30 ML UNIT-DOSE CUP PO PRN (02:10)
[2018-06-13] MEDS ORDERED: METHADONE HCL 40 MG DISPERSABLE TABLET ONE (03:17)
[2018-06-13] MEDS ORDERED: METHADONE HCL 10 MG TABLET ONE (03:17)
[2018-06-13] MEDS: METHADONE 40 MG, METHADONE 30 MG PO SCH (06:26)
[2018-06-13 06:47] VITALS: BP 112/75; PULSE 73; TEMP 97.8
--- NOTE | 2018-06-13 06:59 | PN ---
[facility] Progress Note Note: Patient Name: JAIR SIEGEL Date of : 79 Patient Status: Inpatient Attending Provider: Marci Saeed Date: 06/13/18 07:58 Initialization Date: 06/13/18 07:58 DISCHARGE SUMMARY Admission Date: 06/10/18 Discharge Date: 06/13/18 - History Present History: Alcohol Dependence, Cocaine Dependence, MMTP Pertinent Past History: ASTHMA HTN MMTP GERD NICOTINE DEP - Physical Exam Results Vital Signs: Vital Signs Temperature 97.8 F 06/13/18 06:46 Pulse Rate 73 06/13/18 06:46 Respiratory Rate 18 06/13/18 06:46 Blood Pressure 112/75 06/13/18 06:46 O2 Sat by Pulse Oximetry (%) Pertinent Admission Physical Exam Findings: SEEKING REHAB SERVICES FOR COCAINE DEPENDENCE AFTER DETOX FROM ALCOHOL Laboratory Tests 06/10/18 06/10/18 06/10/18 15:30 15:30 15:30 WBC 7.6 RBC 3.95 Hgb 13.1 Hct 39.5 MCV 100.0 H MCH 33.2 MCHC 33.2 RDW 14.2 Plt Count 302 MPV 8.1 Sodium 142 Potassium 4.1 Chloride 106 Carbon Dioxide 29 Anion Gap 7 L BUN 19 H Creatinine 0.8 Creat Clearance w eGFR 79.44 Random Glucose 133 H Calcium 8.5 Total Bilirubin < 0.1 L AST 14 L ALT 19 Alkaline Phosphatase 95 Total Protein 6.7 Albumin 3.6 RPR Titer Nonreactive - Treatment Hospital Course: Discharged Condition Good Patient has Accepted a Rehab Referral to: [facility] - Medication Discharge Medications: Ambulatory Orders Albuterol Sulfate Inhaler - [Ventolin Hfa Inhaler -] 2 inh PO Q4H PRN 01/03/17 Methadone [Dolophine -] 70 mg PO DAILY 06/10/18 - AMA Did Patient Leave Against Medical Advice: Yes (D/W CLIENT ABOUT RISK FOR OVERDOSE/SEIZURE/ DUE TO LOWERED TOLERANCE. CLIENT ACCEPT RISK. )
--- NOTE | 2018-06-13 07:59 | DS ---
[facility] Detox Discharge Summary Admission Date: 06/10/18 Discharge Date: 06/13/18 - History Present History: Alcohol Dependence, Cocaine Dependence, MMTP Pertinent Past History: ASTHMA HTN MMTP GERD NICOTINE DEP - Physical Exam Results Vital Signs: Vital Signs Temperature 97.8 F 06/13/18 06:46 Pulse Rate 73 06/13/18 06:46 Respiratory Rate 18 06/13/18 06:46 Blood Pressure 112/75 06/13/18 06:46 O2 Sat by Pulse Oximetry (%) Pertinent Admission Physical Exam Findings: SEEKING REHAB SERVICES FOR COCAINE DEPENDENCE AFTER DETOX FROM ALCOHOL - Treatment Hospital Course: Discharged Condition Good Patient has Accepted a Rehab Referral to: [facility] - Medication Discharge Medications: Ambulatory Orders Albuterol Sulfate Inhaler - [Ventolin Hfa Inhaler -] 2 inh PO Q4H PRN 01/03/17 Methadone [Dolophine -] 70 mg PO DAILY 06/10/18 - AMA Did Patient Leave Against Medical Advice: Yes (D/W CLIENT ABOUT RISK FOR OVERDOSE/SEIZURE/ DUE TO LOWERED TOLERANCE. )
== END 2018-06-13 07:15 | disposition left against medical advice (07) | DRG 770 ==
LOC: YASAS 13:06 → Y3E 16:04
PROVIDERS: ADMIT Neuromusculoskeletal Medicine & OMM; ATTEND Neuromusculoskeletal Medicine & OMM
PROC: HZ42ZZZ Group Counseling for Substance Abuse Treatment, Cognitive-Behavioral (ICD-10-PCS; principal; 2018-06-10)
DX: F11.20 Opioid dependence, uncomplicated (principal); F10.20 Alcohol dependence, uncomplicated; F14.20 Cocaine dependence, uncomplicated; F17.210 Nicotine dependence, cigarettes, uncomplicated; I10 Essential (primary) hypertension; J45.20 Mild intermittent asthma, uncomplicated; K21.9 Gastro-esophageal reflux disease without esophagitis; I83.893 Varicose veins of bilateral lower extremities with other complications; Z88.0 Allergy status to penicillin; Z91.013 Allergy to seafood; Z88.8 Allergy status to other drugs, medicaments and biological substances
CPT/HCPCS: 36415; 80053; 85027; 86593